=== PATIENT | female | born 1935 | race American Indian/Alaskan Native ===

== ENCOUNTER 2017-05-23 20:08 | Emergency (ER) | payer MEDICARE, OTHER ==
[~2017-05-23] VITALS: Ht 165.1 cm; Wt 55.0 kg
[~2017-05-23 20:08] MED LIST: LISI2.5T PO; LOSA25TA5 PO; SODI325T PO
[2017-05-23] MEDS ORDERED: SODIUM CHLORIDE FLUSH 10ML SYR IVF ONE (20:30)
[2017-05-23] MEDS ORDERED: SODIUM CHLORIDE 0.9% 1,000ML IVBOLUS ONE ×2 (20:30→21:30)
[2017-05-23 20:52] LABS: ASPARTATE AMINO TRANSFERASE 11 U/L (15-37); BLOOD UREA NITROGEN 28 mg/dL (7-18)
[2017-05-23 20:57] LABS: IS PT STATUS REG ER OR PRE ER? YES
[2017-05-23] MEDS ORDERED: MECLIZINE CHEWABLE 25 MG TAB PO ONE (21:00)
[2017-05-23] MEDS ORDERED: MECLIZINE CHEWABLE 25 MG TAB ONE (21:02)
[2017-05-23 22:51] LABS: PATH.CAST-FLAG NOT PRESENT; SPERM-FLAG NOT PRESENT; SRC-FLAG NOT PRESENT; XTAL-FLAG NOT PRESENT; YLC-FLAG NOT PRESENT
[2017-05-24 00:01] VITALS: BP 180/76
== END 2017-05-24 00:04 | disposition home or self-care (01) ==
LOC: ED 23:46
DX: E86.0 Dehydration (principal); R20.9 Unspecified disturbances of skin sensation; J45.909 Unspecified asthma, uncomplicated
CPT/HCPCS: 36415; 70450; 71010; 80053; 80329; 81001; 84484; 85025; 87086; 93005; 96360; 96361; 99285; J7030; G0480

== ENCOUNTER 2018-04-27 08:56 | Emergency (ER) | payer MEDICARE, OTHER ==
[~2018-04-27] VITALS: Ht 165.1 cm; Wt 55.6 kg
[2018-04-27 09:58] LABS: BASOPHILS # (AUTO) 0.03 x10^3/uL (0-0.1); BASOPHILS % (AUTO) 0 % (0-1); EOSINOPHILS # (AUTO) 0.19 x10^3/uL (0-0.4); EOSINOPHILS % (AUTO) 3 % (1-7); LYMPHOCYTES # (AUTO) 1.34 x10^3/uL (1-3.4); LYMPHOCYTES % (AUTO) 20 % (22-44); MD NO; MEAN CORPUSCULAR HEMOGLOBIN 29.3 pg (27.0-34.8); MEAN CORPUSCULAR HGB CONC 33.2 g/dL (32.4-35.8); MEAN CORPUSCULAR VOLUME 88.2 fL (80-100); MEAN PLATELET VOLUME 7.5 fL (7.4-10.4); MONOCYTES % (AUTO) 8 % (2-9); NEUTROPHILS # (AUTO) 4.58 x10^3/uL (1.8-6.8); NEUTROPHILS % (AUTO) 69 % (42-75); PLATELET COUNT 357 x10^3/uL (130-400); RED BLOOD COUNT 3.32 x10^6/uL (3.82-5.3); RED CELL DISTRIBUTION WIDTH 15.1 % (9.6-15.2)
[2018-04-27 10:11] LABS: ALBUMIN 3.3 g/dL (3.4-5.0); ANION GAP 8 mmol/L (5-15); CALCIUM 8.5 mg/dL (8.5-10.1); CHLORIDE 113 mmol/L (98-107)
[2018-04-27 10:14] LABS: TROPONIN I < 0.015 ng/mL (0.000-0.045)
[2018-04-27 10:53] VITALS: BP 175/89
== END 2018-04-27 10:55 | disposition home or self-care (01) ==
LOC: ED 10:30
DX: M25.512 Pain in left shoulder (principal); M79.622 Pain in left upper arm; M79.1 Myalgia; J45.909 Unspecified asthma, uncomplicated
CPT/HCPCS: 36415; 71045; 80048; 82040; 84484; 85025; 93005; 99285

== ENCOUNTER 2018-10-28 19:11 | Emergency (ER) | payer MEDICARE, OTHER ==
[~2018-10-28] VITALS: Ht 165.1 cm; Wt 55.4 kg
[~2018-10-28 19:11] MED LIST changes: +ACET325T14 PO; +BETA10DR OP; +BRIM5DRO3 EACHEYE; +CALC-545 PO; +CIPR250T27 PO; +CYAN10002 IM; +DIPH25CA61 PO; +DORZ10DR27 OP; +FLUT15OI2 TP; +HYDR-3241 PO; +LATA2.5D3 EACHEYE; +LORA1TAB PO; +LOSA25TA25 PO; -LOSA25TA5 PO
[2018-10-28 19:21] VITALS: BP 152/94
== END 2018-10-28 21:17 | disposition home or self-care (01) ==
LOC: ED 21:11
DX: G89.29 Other chronic pain (principal); M54.5 Low back pain; I10 Essential (primary) hypertension; J45.909 Unspecified asthma, uncomplicated
CPT/HCPCS: 72110; 99283

== ENCOUNTER 2018-10-31 01:30 | Emergency (ER) | payer MEDICARE ==
[~2018-10-31] VITALS: Ht 165.1 cm; Wt 50.0 kg
--- NOTE | 2018-10-31 01:52 | NUR ---
PT STATES RECENTLY BEING SEEN IN ED LAST PM FOR BACK PAIN CONTROL AND WAS GIVEN A MEDICATION. PT STATES HER BACK PAIN HAS BEEN STAGNANT AND STATES FEELING "ILL" THIS AM W/ NAUSEA AND LOSS OF APPETITE. PT TOLERATES PO INTAKE, BUT HAD ONE EPISODE OF EMESIS THIS PM. PT STATES UNABLE TO TAKE PAIN PILLS BECAUSE OF NAUSEA. MONITORING APPLIED. PT HTN, MD AWARE. OTHER VSS. CALL LIGHT WITHIN REACH. MD AT BEDSIDE FOR ASSESSMENT.
[2018-10-31] MEDS ORDERED: ONDANSETRON ODT 4 MG PO ONE (02:00)
[2018-10-31] MEDS ORDERED: ONDANSETRON ODT 4 MG ONE (02:15)
[2018-10-31 02:21] LABS: BASOPHILS # (AUTO) 0.03 x10^3/uL (0-0.1); BASOPHILS % (AUTO) 0 % (0-1); EOSINOPHILS # (AUTO) 0.05 x10^3/uL (0-0.4); EOSINOPHILS % (AUTO) 1 % (1-7); LYMPHOCYTES # (AUTO) 0.59 x10^3/uL (1-3.4); LYMPHOCYTES % (AUTO) 7 % (22-44); MD NO; MEAN CORPUSCULAR HEMOGLOBIN 32.6 pg (27.0-34.8); MEAN CORPUSCULAR HGB CONC 34.3 g/dL (32.4-35.8); MEAN PLATELET VOLUME 7.3 fL (7.4-10.4); MONOCYTES # (AUTO) 0.47 x10^3/uL (0.2-0.8); MONOCYTES % (AUTO) 6 % (2-9); NEUTROPHILS # (AUTO) 7.29 x10^3/uL (1.8-6.8); NEUTROPHILS % (AUTO) 87 % (42-75); PLATELET COUNT 324 x10^3/uL (130-400); RED BLOOD COUNT 3.62 x10^6/uL (3.82-5.3)
[2018-10-31 02:28] VITALS: BP 169/82
[2018-10-31 02:29] LABS: ALANINE AMINOTRANSFERASE 93 U/L (12-78); ALBUMIN 3.6 g/dL (3.4-5.0); ANION GAP 12 mmol/L (5-15); CALCIUM 9.1 mg/dL (8.5-10.1); CHLORIDE 102 mmol/L (98-107); CREATININE 1.55 mg/dL (0.55-1.02)
--- NOTE | 2018-10-31 02:29 | NUR ---
PT AWARE OF NEED FOR UA. STATES UNABLE TO AT THIS TIME. MD AWARE.
[2018-10-31 02:31] LABS: ALKALINE PHOSPHATASE 282 U/L (45-117); BILIRUBIN,TOTAL 0.6 mg/dL (0.2-1.0); TOTAL PROTEIN 7.6 g/dL (6.4-8.2)
== END 2018-10-31 03:28 | disposition home or self-care (01) ==
LOC: ED 01:51
DX: G89.29 Other chronic pain (principal); R11.2 Nausea with vomiting, unspecified; M54.9 Dorsalgia, unspecified; I10 Essential (primary) hypertension; J45.909 Unspecified asthma, uncomplicated
CPT/HCPCS: 36415; 80053; 85025; 93005; 99284; Q0162

== ENCOUNTER 2019-09-24 21:59 | Emergency (ER) | payer MEDICARE, OTHER ==
[~2019-09-24] VITALS: Ht 165.1 cm; Wt 53.2 kg
[2019-09-24 23:25] LABS: BASOPHILS # (AUTO) 0.03 x10^3/uL (0-0.1); BASOPHILS % (AUTO) 1 % (0-1); EOSINOPHILS # (AUTO) 0.13 x10^3/uL (0-0.4); EOSINOPHILS % (AUTO) 2 % (1-7); LYMPHOCYTES # (AUTO) 1.05 x10^3/uL (1-3.4); LYMPHOCYTES % (AUTO) 18 % (22-44); MD NO; MEAN CORPUSCULAR HEMOGLOBIN 32.4 pg (27.0-34.8); MEAN CORPUSCULAR HGB CONC 33.5 g/dL (32.4-35.8); MEAN CORPUSCULAR VOLUME 96.7 fL (80-100); MEAN PLATELET VOLUME 6.1 fL (7.4-10.4); MONOCYTES # (AUTO) 0.33 x10^3/uL (0.2-0.8); MONOCYTES % (AUTO) 6 % (2-9); NEUTROPHILS # (AUTO) 4.24 x10^3/uL (1.8-6.8); NEUTROPHILS % (AUTO) 73 % (42-75); PLATELET COUNT 354 x10^3/uL (130-400); RED BLOOD COUNT 3.47 x10^6/uL (3.82-5.3); RED CELL DISTRIBUTION WIDTH 13.8 % (9.6-15.2)
[2019-09-24 23:36] LABS: ALBUMIN 3.3 g/dL (3.4-5.0); ANION GAP 5 mmol/L (5-15); CALCIUM 8.6 mg/dL (8.5-10.1); CHLORIDE 108 mmol/L (98-107); CREATININE 1.79 mg/dL (0.55-1.02)
[2019-09-24 23:39] LABS: TROPONIN I < 0.015 ng/mL (0.000-0.045)
--- NOTE | 2019-09-24 23:57 | NUR ---
PT W/ C/O DIZZINESS AND STATES SHE ALMOST THIS EVENING. PT WITH HIGH BP IN ED. PT ATTACHED TO ALL MONITORS. STATES SHE DOES NOT FEEL DIZZY WHEN SHE IS SITTING IN THE BED. SHE STATES SHE HAD A HEADACHE EARLIER AND TOOK ASA, NOW BETTER. NO ACUTE DISTRESS. AWAITING CT RESULTS.
[2019-09-25] MEDS ORDERED: OMNIPAQUE 350 MG/ML, 100ML BOTTLE ONE (00:33)
[2019-09-25 00:54] VITALS: BP 183/84
== END 2019-09-25 01:59 | disposition left against medical advice (07) ==
LOC: ED 23:40
DX: R55 Syncope and collapse (principal); R51 Headache; R53.1 Weakness; D64.9 Anemia, unspecified; N17.9 Acute kidney failure, unspecified; R42 Dizziness and giddiness; I10 Essential (primary) hypertension
CPT/HCPCS: 36415; 70450; 70496; 70498; 71045; 80048; 82040; 83880; 84484; 85025; 93005; 99284; Q9967

== ENCOUNTER 2020-06-16 18:40 | Inpatient (IN) | payer MEDICARE ==
[~2020-06-16] VITALS: Ht 165.1 cm; Wt 50.6 kg
--- NOTE | 2020-06-16 19:05 | NUR ---
Patient presents to ER c/o weakness, cough, SOARES, and SOB since yesterday. Patient denied fevers or CP. Patient states she is SOB; respirations even and slightly labored.
[2020-06-16] MEDS ORDERED: IBUPROFEN 600 MG TABLET ONE (19:51)
[2020-06-16] MEDS ORDERED: IBUPROFEN 600 MG TABLET PO ONE (20:00)
[2020-06-16] MEDS ORDERED: SODIUM CHLORIDE 0.9% 1,000ML IVBOLUS ONE ×2 (20:00→20:30)
[2020-06-16] MEDS ORDERED: SODIUM CHLORIDE FLUSH 10ML SYR IVF ONE (20:00)
[2020-06-16 20:30] LABS: BASOPHILS % (AUTO) 0 % (0-1); EOSINOPHILS % (AUTO) 0 % (1-7); LYMPHOCYTES % (AUTO) 3 % (22-44); MD NO; MEAN CORPUSCULAR HEMOGLOBIN 31.5 pg (27.0-34.8); MEAN CORPUSCULAR HGB CONC 33.3 g/dL (32.4-35.8); MEAN CORPUSCULAR VOLUME 94.6 fL (80-100); MEAN PLATELET VOLUME 6.6 fL (7.4-10.4); MONOCYTES # (AUTO) 0.35 x10^3/uL (0.2-0.8); MONOCYTES % (AUTO) 3 % (2-9); NEUTROPHILS # (AUTO) 9.64 x10^3/uL (1.8-6.8); NEUTROPHILS % (AUTO) 94 % (42-75); PLATELET COUNT 331 x10^3/uL (130-400); RED BLOOD COUNT 4.03 x10^6/uL (3.82-5.3); RED CELL DISTRIBUTION WIDTH 14.7 % (9.6-15.2)
[2020-06-16 20:42] LABS: ALANINE AMINOTRANSFERASE 15 U/L (12-78); ALBUMIN 3.2 g/dL (3.4-5.0); ANION GAP 10 mmol/L (5-15); CALCIUM 8.9 mg/dL (8.5-10.1); CHLORIDE 105 mmol/L (98-107); CREATININE 2.26 mg/dL (0.55-1.02)
[2020-06-16 20:45] LABS: ALKALINE PHOSPHATASE 155 U/L (45-117); BILIRUBIN,TOTAL 0.5 mg/dL (0.2-1.0); TOTAL PROTEIN 7.9 g/dL (6.4-8.2)
[2020-06-16 21:27] LABS: MICROSCOPIC AUTO
[2020-06-16 21:59] LABS: TROPONIN I < 0.015 ng/mL (0.000-0.045)
[2020-06-16] MEDS ORDERED: CEFTRIAXONE PMX 1GM/50ML 50 ML ONE (22:11)
--- NOTE | 2020-06-16 22:25 | NUR ---
Pt resting, no complaints at this time, states comfort. Fluids, ABX infusing. Family at bedside.
[2020-06-16] MEDS ORDERED: CEFTRIAXONE PMX 1GM/50ML 50 ML IV ONE (22:30)
[2020-06-16] MEDS ORDERED: LOSA25TA25 PO (22:33)
[2020-06-17] MEDS ORDERED: SODIUM CHLORIDE 0.9% 1,000 ML IV SCH (00:09)
[2020-06-17] MEDS ORDERED: LORazepam 2 MG/ML, 1ML ONE (00:29)
[2020-06-17] MEDS ORDERED: PROMETHAZINE 25 MG/ML, 1ML IM PRN (00:30)
[2020-06-17] MEDS ORDERED: POLYETHYLENE GLYCOL 17 GM PACKET PO PRN (00:30)
[2020-06-17] MEDS ORDERED: ONDANSETRON ODT 4 MG PO PRN (00:30)
[2020-06-17] MEDS ORDERED: OXYcodone IR 5MG TABLET PO PRN (00:30)
[2020-06-17] MEDS ORDERED: LORazepam 2 MG/ML, 1ML IVPush ONE (00:30)
[2020-06-17] MEDS ORDERED: hydrALAzine 20 MG/ML, 1ML IVPush PRN (00:30)
[2020-06-17] MEDS ORDERED: ONDANSETRON 2MG/ML, 2ML IVPush PRN (00:30)
[2020-06-17] MEDS ORDERED: DOCUSATE 100 MG CAPSULE PO PRN (00:30)
[2020-06-17] MEDS ORDERED: BISACODYL 10 MG SUPP PR PRN (00:30)
--- NOTE | 2020-06-17 00:50 | NUR ---
Patient states she is anxious and does not want to be in the gurney. She asked to use the bedside commode. Patient appears anxious. Assisted patient to the bedside commode. Patient returned to bed and repeated that she was anxious. Patient's HR varied between 140s-180s. Meds admin per mar for anxiety. ERP notified. Repeat EKG performed. 3rd fluid bolus of 500mL initiated. Hospitalist to be contacted by ERP. Patient calmed slilghtly and HR decreased to 120s-130s.
[2020-06-17 00:53] LABS: FREE T4 (FREE THYROXINE) 1.48 ng/dL (0.76-1.46)
[2020-06-17] MEDS ORDERED: SODIUM CHLORIDE 0.9% 1,000ML IVBOLUS ONE (01:30)
--- NOTE | 2020-06-17 02:19 | NUR ---
BREAK RN: PT RESTING ON GURNEY, LAYING UNDER BLANKETS, APPEARS TO BE COMFORTABLE, EYES CLOSED, NAD, EVEN AND UNLABORED RESPIRATIONS NOTED AT THIS TIME. ECG/SPO2/BP MONITORING APPROPRIATELY IN PLACE, BED IN LOWEST POSITION, CALL LIGHT ON LAP, WCTM. WAITING FOR ADMIT BED.
--- NOTE | 2020-06-17 05:24 | NUR ---
Report given to ABIMBOLA Bhakta. Patient to be transferred to room 493.
[2020-06-17 05:42] VITALS: BP 120/81
[2020-06-17] MEDS: HEPARIN 5,000 UNITS/ML, 1ML SQ SCH ×3 (05:58→22:41)
[2020-06-17 08:28] VITALS: BP 105/64
[2020-06-17] MEDS ORDERED: CEFTRIAXONE PMX 1GM/50ML 50 ML IV SCH (09:00)
[2020-06-17] MEDS ORDERED: PIPERACILLIN/TAZO/PMX 3.375GM 50 ML IV SCH (10:00)
[2020-06-17] MEDS: LACTATED RINGERS 1,000 ML IV SCH (10:48)
[2020-06-17] MEDS ORDERED: CLOT30CR17 TP (11:44)
[2020-06-17 14:25] VITALS: BP 128/81
[2020-06-17 19:25] VITALS: BP 125/76
[2020-06-17] MEDS: PIPERACILLIN/TAZO 2.25 GM in NS 50 ML IV SCH (19:46)
[2020-06-18 00:31] VITALS: BP 132/73
[2020-06-18] MEDS: LACTATED RINGERS 1,000 ML IV SCH ×2 (00:59→18:50)
[2020-06-18] MEDS: PIPERACILLIN/TAZO 2.25 GM in NS 50 ML IV SCH ×3 (03:33→20:03)
[2020-06-18] MEDS: ACETAMINOPHEN 325 MG TABLET PO PRN (03:37)
[2020-06-18 05:52] LABS: ALANINE AMINOTRANSFERASE 11 U/L (12-78); ALBUMIN 2.1 g/dL (3.4-5.0); ANION GAP 10 mmol/L (5-15); CALCIUM 7.8 mg/dL (8.5-10.1); CHLORIDE 110 mmol/L (98-107); CHOLESTEROL, TOTAL 121 mg/dL (140-239); CREATININE 1.63 mg/dL (0.55-1.02); TRIGLYCERIDES 141 mg/dL (50-200); VLDL CHOLESTEROL 28 mg/dL (0-25)
[2020-06-18 05:54] LABS: ALKALINE PHOSPHATASE 94 U/L (45-117); BILIRUBIN,TOTAL 0.3 mg/dL (0.2-1.0); CHOL/HDL RATIO 4.3; HDL CHOL % 23 % (28-40); HDL CHOLESTEROL (DIRECT) 28 mg/dL (40-60); LDL CHOLESTEROL,CALCULATED 65 mg/dL (54-169); LDL/HDL RATIO 2.3 (0.5-3.0); TOTAL PROTEIN 5.3 g/dL (6.4-8.2)
[2020-06-18 06:11] LABS: BASOPHILS # (AUTO) 0.02 x10^3/uL (0-0.1); BASOPHILS % (AUTO) 0 % (0-1); EOSINOPHILS # (AUTO) 0.11 x10^3/uL (0-0.4); EOSINOPHILS % (AUTO) 1 % (1-7); LYMPHOCYTES # (AUTO) 0.95 x10^3/uL (1-3.4); LYMPHOCYTES % (AUTO) 10 % (22-44); MD NO; MEAN CORPUSCULAR HEMOGLOBIN 31.5 pg (27.0-34.8); MEAN CORPUSCULAR HGB CONC 32.9 g/dL (32.4-35.8); MEAN CORPUSCULAR VOLUME 95.8 fL (80-100); MONOCYTES # (AUTO) 0.64 x10^3/uL (0.2-0.8); MONOCYTES % (AUTO) 7 % (2-9); NEUTROPHILS # (AUTO) 7.59 x10^3/uL (1.8-6.8); NEUTROPHILS % (AUTO) 82 % (42-75); PLATELET COUNT 231 x10^3/uL (130-400); RED BLOOD COUNT 3.07 x10^6/uL (3.82-5.3); RED CELL DISTRIBUTION WIDTH 14.9 % (9.6-15.2)
[2020-06-18] MEDS: HEPARIN 5,000 UNITS/ML, 1ML SQ SCH ×3 (06:13→22:19)
[2020-06-18 07:20] VITALS: BP 122/86
[2020-06-18 12:24] VITALS: BP 136/73
[2020-06-18] MEDS ORDERED: BRIMONIDINE MC SCH ×2 (17:30)
[2020-06-18] MEDS: CLOTRIMAZOLE CRM 1%, 15GM TP SCH ×2 (17:30→20:22)
[2020-06-18] MEDS ORDERED: [UNRECOGNIZED DRUG - OTHER] MC SCH ×2 (17:30)
[2020-06-18 19:00] VITALS: BP 147/94
[2020-06-18] MEDS: LATANOPROST OPHTH 0.005%, 2.5ML EACHEYE SCH (20:00)
[2020-06-18] MEDS: BRIMONIDINE TART. OPHTH 0.2%, 5ML EACHEYE SCH (20:01)
[2020-06-18] MEDS: DIPHENHYDRAMINE 25 MG CAPSULE PO SCH (20:21)
[2020-06-18] MEDS ORDERED: BETAXOLOL 0.25% OP SCH (21:00)
[2020-06-18] MEDS ORDERED: BRIMONIDINE TARTRATE EACHEYE SCH (21:00)
[2020-06-19 00:21] VITALS: BP 140/81
[2020-06-19] MEDS: PIPERACILLIN/TAZO 2.25 GM in NS 50 ML IV SCH ×3 (04:09→20:22)
[2020-06-19] MEDS: HEPARIN 5,000 UNITS/ML, 1ML SQ SCH ×3 (05:32→21:41)
[2020-06-19 07:00] VITALS: BP 137/81
[2020-06-19] MEDS: BETAXOLOL 0.25% OP SCH ×2 (09:00→19:24)
[2020-06-19] MEDS: CALCIUM/VITAMIN D3 250-125 TABLET PO SCH (09:22)
[2020-06-19] MEDS: SODIUM BICARBONATE 650 MG TABLET PO SCH (09:22)
[2020-06-19] MEDS: BRIMONIDINE TART. OPHTH 0.2%, 5ML EACHEYE SCH ×2 (09:22→20:23)
[2020-06-19] MEDS: DORZOLAMIDE OPHTH 2%, 10ML OP SCH (09:22)
[2020-06-19] MEDS: CLOTRIMAZOLE CRM 1%, 15GM TP SCH ×2 (09:23→20:22)
[2020-06-19] MEDS: FLUOCINONIDE CRM 0.05%, 15GM TP SCH (11:35)
[2020-06-19 13:06] VITALS: BP 136/82
[2020-06-19 18:27] VITALS: BP 138/79
[2020-06-19] MEDS: DIPHENHYDRAMINE 25 MG CAPSULE PO SCH (20:23)
[2020-06-19] MEDS: LATANOPROST OPHTH 0.005%, 2.5ML EACHEYE SCH (20:23)
[2020-06-19] MEDS: ACETAMINOPHEN 325 MG TABLET PO PRN (23:45)
[2020-06-20 00:13] VITALS: BP 128/80
[2020-06-20] MEDS ORDERED: MELATONIN 5 MG TABLET PO PRN (02:30)
[2020-06-20] MEDS: PIPERACILLIN/TAZO 2.25 GM in NS 50 ML IV SCH (03:56)
[2020-06-20 06:12] VITALS: BP 116/63
[2020-06-20] MEDS: BETAXOLOL 0.25% OP SCH (09:00)
[2020-06-20] MEDS ORDERED: LEVO750T6 PO (09:26)
[2020-06-20] MEDS: CALCIUM/VITAMIN D3 250-125 TABLET PO SCH (09:46)
[2020-06-20] MEDS: SODIUM BICARBONATE 650 MG TABLET PO SCH (09:46)
[2020-06-20] MEDS: BRIMONIDINE TART. OPHTH 0.2%, 5ML EACHEYE SCH (09:47)
[2020-06-20] MEDS: CLOTRIMAZOLE CRM 1%, 15GM TP SCH (09:47)
[2020-06-20] MEDS: FLUOCINONIDE CRM 0.05%, 15GM TP SCH (09:47)
[2020-06-20] MEDS: HEPARIN 5,000 UNITS/ML, 1ML SQ SCH (09:47)
[2020-06-20] MEDS: DORZOLAMIDE OPHTH 2%, 10ML OP SCH (09:47)
== END 2020-06-20 11:55 | disposition home or self-care (01) | DRG 871 ==
LOC: ED 22:38 → EDIP 22:43 → 4EST 06-17 05:44 → 3N 06-18 17:53
PROVIDERS: ADMIT Internal Medicine; ATTEND Hospitalist
PROC: 0T9B30Z Drainage of Bladder with Drainage Device, Percutaneous Approach (ICD-10-PCS; principal; 2020-06-16)
DX: A41.51 Sepsis due to Escherichia coli [E. coli] (principal); G93.41 Metabolic encephalopathy; N17.0 Acute kidney failure with tubular necrosis; E87.2 Acidosis; I12.9 Hypertensive chronic kidney disease with stage 1 through stage 4 chronic kidney disease, or unspecified chronic kidney disease; N18.9 Chronic kidney disease, unspecified; J45.909 Unspecified asthma, uncomplicated; M79.7 Fibromyalgia; N30.91 Cystitis, unspecified with hematuria; D72.829 Elevated white blood cell count, unspecified; Z20.828 Contact with and (suspected) exposure to other viral communicable diseases; H57.9 Unspecified disorder of eye and adnexa; Z79.899 Other long term (current) drug therapy
CPT/HCPCS: 36415; 71045; 80053; 80061; 81001; 83036; 83605; 83735; 84145; 84439; 84443; 84484; 85025; 87040; 87077; 87086; 87186; 87635; 93005; 96361; 96374; 96375; 99285; G0378; J0696; J1644; J2543; J2060; J7030; J7120; Q0163